=== PATIENT | male | born 2000 | race Caucasian/White ===

== ENCOUNTER 2025-06-04 05:58 | Emergency (ER) | payer OTHER ==
[~2025-06-04] VITALS: Ht 177.8 cm; Wt 107.4 kg
[2025-06-04] MEDS ORDERED: GI COCKTAIL 50 ML BTL(HYOSCYAMINE/MAALOX/LIDOCAINE VISCOUS)(1:3:1) PO ONE (06:45)
[2025-06-04 07:15] LABS: BASO # 0.1 10^3/uL (0.0-0.2); BASO % 0.9 % (0.0-1.0); EOS # 0.2 10^3/uL (0.0-0.5); EOS % 2.5 % (0.0-3.0); LYMPH # 2.4 10^3/uL (1.5-5.0); LYMPH % 35.4 % (24.0-44.0); MONO # 0.5 10^3/uL (0.0-0.8); MONO % 7.0 % (2.0-8.0); NEUTROPHILS # 3.6 10^3/uL (1.5-8.5); NEUTROPHILS % 53.8 % (36.0-66.0); PLATELET COUNT, AUTOMATED 257 10^3/uL (150-450)
[2025-06-04 07:37] LABS: INR 0.98
[2025-06-04 07:45] LABS: ALT/SGPT 72 U/L (7.0-40); AST/SGOT 38 U/L (<34); CALCIUM LEVEL 9.1 MG/DL (8.5-10.1); CARBON DIOXIDE LEVEL 27 MMOL/L (20-31); CHLORIDE LEVEL 109 MMOL/L (98-107); CREATININE FOR GFR 0.84 MG/DL (0.70-1.30); GLOMERULAR FILTRATION RATE > 90.0 (>60); POTASSIUM SERUM 4.2 MMOL/L (3.5-5.1); SODIUM LEVEL 144 MMOL/L (136-145)
[2025-06-04 07:46] LABS: CK-MB VALUE MASS 1.0 NG/ML (<3.6)
[2025-06-04 07:47] LABS: CPK CREATINE PHOSPHOKINASE 141 U/L (46-171); MB/CK RELATIVE INDEX 0.70 (< OR =4)
[2025-06-04] MEDS: PANTOPRAZOLE 40MG VIAL IV ONE (07:51)
[2025-06-04 09:00] VITALS: BP 135/71; O2SAT 98
[2025-06-04 09:02] VITALS: TEMP 97.4
[2025-06-04] MEDS ORDERED: PROT1TAB2 PO (09:02)
[2025-06-04] MEDS ORDERED: CARA1TAB6 PO (09:02)
== END 2025-06-04 09:23 | disposition home or self-care (01) ==
LOC: M ED 05:58
DX: R10.13 Epigastric pain (principal); K76.0 Fatty (change of) liver, not elsewhere classified; R94.5 Abnormal results of liver function studies
CPT/HCPCS: 71045; 76705; 80053; 82550; 82553; 83690; 84484; 85025; 85610; 85730; 93005; 96374; 99284; J2470